=== PATIENT | female | born 1990 | race Caucasian/White ===

== ENCOUNTER 2017-01-17 21:52 | Emergency (ER) | payer MEDICAID ==
[2017-01-17 22:11] VITALS: BP 100/67; PULSE 62; RESP 20; TEMP 97.9; O2SAT 97
== END 2017-01-17 22:46 | disposition left against medical advice (07) ==
LOC: C.ER 21:52
DX: R21 Rash and other nonspecific skin eruption (principal); Z02.9 Encounter for administrative examinations, unspecified

== ENCOUNTER 2017-10-06 23:28 | Emergency (ER) | payer MEDICAID ==
[2017-10-07 00:10] VITALS: BP 105/62; PULSE 72; TEMP 98.6; O2SAT 100
--- NOTE | 2017-10-07 00:41 | C.PDOC ---
History Of Present Illness 27 year old female with a Hx of eczema presents to the ER after waking up with increasing swelling around her lips and an itchy rash to the face. Patient states she no longer has any of her prescribed ointments or creams at home. Denies SOB or tongue swelling. Time Seen by Provider: 10/07/17 00:16 Chief Complaint (Nursing): Allergic Reaction History Per: Patient History/Exam Limitations: no limitations Current Symptoms Are (Timing): Still Present Possible Cause: Unknown Associated Symptoms: Skin Rash, Swelling, Itching Recent travel outside of the [place]: No Past Medical History Reviewed: Historical Data, Nursing Documentation, Vital Signs Vital Signs: Last Vital Signs Temp 98.6 F 10/07/17 00:05 Pulse 72 10/07/17 00:05 Resp 20 10/07/17 00:53 BP 105/62 10/07/17 00:05 Pulse Ox 100 10/07/17 04:40 Family History: States: Unknown Family Hx - Social History Hx Tobacco Use: No Hx Alcohol Use: No Hx Substance Use: No - Immunization History Hx Tetanus Toxoid Vaccination: No Hx Influenza Vaccination: Yes Hx Pneumococcal Vaccination: No Review Of Systems ENT: Positive for: Mouth Swelling ( Around lips). Negative for: Throat Swelling Respiratory: Negative for: Shortness of Breath, Wheezing Skin: Positive for: Rash Physical Exam - Physical Exam Appears: Non-toxic, No Acute Distress Skin: Warm, Dry, Rash (Macular rash face, hyperpigmentation to perioral area. Hyperpigmented scaly rash to arms, shoulders and anterior aspect of forearms that appears chronic.) Head: Atraumatic, Normacephalic, No Swelling Eye(s): bilateral: Normal Inspection Oral Mucosa: Moist Tongue: Normal Appearing, No Swelling Lips: Normal Appearing, No Swelling Throat: Normal, No Erythema, No Other (Swelling) Neck: Normal, Supple Chest: Symmetrical, No Tenderness Cardiovascular: Rhythm Regular Respiratory: Normal Breath Sounds, No Rales, No Rhonchi, No Wheezing Neurological/Psych: Oriented x3, Normal Speech ED Course And Treatment O2 Sat by Pulse Oximetry: 100 (Room air) Pulse Ox Interpretation: Normal Progress Note: Benadryl and prednisone administered. Patient is resting comfortably in the ER in no acute distress, will discharge home with Rx and instruct to follow up with dematologist for further evaluation or return to ER if symtoms worsen. Disposition Counseled Patient/Family Regarding: Diagnosis, Need For Followup, Rx Given - Disposition Referrals: [facility] [Outside] Disposition: HOME/ ROUTINE Disposition Time: 00:41 Condition: STABLE Additional Instructions: Please follow up with PMD or printing bindery assistant Take meds as directed Return to ER if worse Prescriptions: Cetirizine HCl [Zyrtec] 10 mg PO DAILY #20 capsule predniSONE [Prednisone] 20 mg PO DAILY #7 tab Triamcinolone Acetonide [Kenalog 0.025% cream] 15 applic TP BID #60 g Instructions: Dermatitis (ED) Forms: [employer] (Finnish) - Clinical Impression Clinical Impression: Eczema - 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 - Scribe Statement The provider has reviewed the documentation as recorded by the Scribannamaria Schmitt All medical record entries made by the Vikashibannamaria were at my direction and personally dictated by me. I have reviewed the chart and agree that the record accurately reflects my personal performance of the history, physical exam, medical decision making, and the department course for this patient. I have also personally directed, reviewed, and agree with the discharge instructions and disposition.
[2017-10-07 00:54] VITALS: RESP 20
== END 2017-10-07 00:53 | disposition home or self-care (01) ==
LOC: C.ER 23:28
DX: L30.9 Dermatitis, unspecified (principal)

== ENCOUNTER 2017-12-11 10:59 | Emergency (ER) | payer MEDICAID ==
[2017-12-11 11:25] VITALS: BP 91/62; PULSE 68; RESP 24; TEMP 97.6; O2SAT 100
--- NOTE | 2017-12-11 11:35 | C.PDOC ---
History Of Present Illness 27 yo female with PMH of eczema c/o rash to her face for the last 2-3 days. Pt notes she has had the same flares of eczema many times before. Pt notes she has tried topical cream without relief. Reports "prednisone, benadryl and desonide" is the only thing that works. No recent topical or PO use. Also reports she sometimes gets rash to the back of her neck, shoulders, b/l antecubital area and behind the knees. Denies any new medication, food, or change in detergent. No difficulty breathing or swallowing. Denies tongue or lip swelling. Notes she has not been to a wildlife conservation officer since her last ER visit last year but has an appt scheduled of next Sunday. Time Seen by Provider: 12/11/17 11:15 Chief Complaint (Nursing): Allergic Reaction History Per: Patient History/Exam Limitations: no limitations Onset/Duration Of Symptoms: Days Current Symptoms Are (Timing): Still Present Past Medical History Vital Signs: Last Vital Signs Temp 97.6 F 12/11/17 11:20 Pulse 68 12/11/17 11:20 Resp 24 12/11/17 11:20 BP 91/62 L 12/11/17 11:20 Pulse Ox 100 12/11/17 11:35 - Medical History PMH: Denies: Chronic Kidney Disease Family History: States: Unknown Family Hx - Social History Hx Tobacco Use: No Hx Alcohol Use: No Hx Substance Use: No - Immunization History Hx Tetanus Toxoid Vaccination: No Hx Influenza Vaccination: Yes Hx Pneumococcal Vaccination: No Review Of Systems Except As Marked, All Systems Reviewed And Found Negative. Skin: Positive for: Rash Physical Exam - Physical Exam Appears: Well, Non-toxic, No Acute Distress Skin: Warm, Dry, Rash ((+) dry scaly skin on erythematous base diffusely to her face , mildly on her right axilla and right posterior hair line) Head: Atraumatic, Normacephalic Eye(s): bilateral: Normal Inspection, PERRL, EOMI Ear(s): Bilateral: Normal Nose: Normal Oral Mucosa: Moist Throat: Normal, No Erythema, No Exudate, No Drooling Neck: Normal, Normal ROM, Supple Chest: Symmetrical Cardiovascular: Rhythm Regular Respiratory: Normal Breath Sounds, No Accessory Muscle Use, Other (speaking in full sentences) Gastrointestinal/Abdominal: Normal Exam, Soft, No Tenderness Back: Normal Inspection Extremity: Normal ROM Extremity: Bilateral: Atraumatic Neurological/Psych: Oriented x3, Normal Speech Gait: Steady ED Course And Treatment O2 Sat by Pulse Oximetry: 100 Progress Note: Discussed with pt preventative methods, hydration of skin and avoiding long hot showers. Also discussed concern for prolonged steriod use and side effects. Instructed to follow up with wildlife conservation officer as schedule or return to ER if symtpoms persist or worsen. Disposition - Disposition Disposition: HOME/ ROUTINE Disposition Time: 11:30 Condition: STABLE Additional Instructions: Follow up with the wildlife conservation officer on Sunday as scheduled. Return to ER if symptoms persist or worsen. Prescriptions: Desonide 0.25 gm TP BID #1 cream..g. DiphenhydrAMINE [Benadryl] 25 mg PO Q6 #20 cap predniSONE [Prednisone] 40 mg PO DAILY #8 tab Instructions: Eczema (Atopic Dermatitis) (DC) Forms: [employer] (Montserratian) - Clinical Impression Clinical Impression: Atopic dermatitis
== END 2017-12-11 11:46 | disposition home or self-care (01) ==
LOC: C.ER 10:59
DX: L20.9 Atopic dermatitis, unspecified (principal)

== ENCOUNTER 2018-08-05 19:31 | Emergency (ER) | payer MEDICAID ==
[2018-08-05 19:44] VITALS: BP 103/70; PULSE 65; RESP 16; TEMP 98.9; O2SAT 97
== END 2018-08-05 19:40 | disposition left against medical advice (07) ==
LOC: C.ER 19:31
DX: Z02.89 Encounter for other administrative examinations (principal); M79.645 Pain in left finger(s)

== ENCOUNTER 2018-08-05 23:46 | Emergency (ER) | payer MEDICAID ==
[2018-08-06 00:09] VITALS: RESP 16; O2SAT 98
[2018-08-06] MEDS ORDERED: Tmp-Smz 800 mg-160 mg DS Tab PO STA (01:28)
--- NOTE | 2018-08-06 01:28 | C.PDOC ---
History Of Present Illness 28 year old female presents to the ED c/o pain and swelling to her 3rd left finger for the past 4 days. Patient reports that her symptoms have worsened over the past 2 days which promoted the visit today. Patient denies fever, chills, injury, fall, trauma, weakness, numbness. Time Seen by Provider: 08/06/18 01:05 Chief Complaint (Nursing): Finger,Hand,&Wrist History Per: Patient History/Exam Limitations: no limitations Onset/Duration Of Symptoms: Days (4) Current Symptoms Are (Timing): Still Present Quality: "Pain" Recent travel outside of the [place]: No Additional History Per: Patient Past Medical History Reviewed: Historical Data, Nursing Documentation, Vital Signs Vital Signs: Last Vital Signs Temp 98.7 F 08/06/18 00:07 Pulse 61 08/06/18 00:07 Resp 16 08/06/18 00:07 BP 111/70 08/06/18 00:07 Pulse Ox 98 08/06/18 00:07 - Medical History PMH: No Chronic Diseases Denies: Chronic Kidney Disease Surgical History: No Surg Hx Family History: States: Unknown Family Hx - Social History Hx Tobacco Use: No Hx Alcohol Use: No Hx Substance Use: No - Immunization History Hx Tetanus Toxoid Vaccination: No Hx Influenza Vaccination: Yes Hx Pneumococcal Vaccination: No Review Of Systems Constitutional: Negative for: Fever, Chills Cardiovascular: Negative for: Chest Pain Respiratory: Negative for: Cough, Shortness of Breath Gastrointestinal: Negative for: Nausea, Vomiting, Abdominal Pain Musculoskeletal: Positive for: Hand Pain Skin: Negative for: Rash Neurological: Negative for: Weakness, Numbness Physical Exam - Physical Exam Appears: Non-toxic, No Acute Distress Skin: Normal Color, Warm, Dry Head: Atraumatic, Normacephalic Eye(s): bilateral: Normal Inspection Extremity: Normal ROM, Tenderness (left 3rd finger and nailbed ), Capillary Refi ll (<2 seconds), Swelling (+ swelling, fluctuance and erythema to left 3rd finger and nailbed. ) Pulses: Left Radial: Normal, Right Radial: Normal Neurological/Psych: Oriented x3, Normal Speech, Normal Cognition, Normal Motor, Normal Sensation Gait: Steady ED Course And Treatment O2 Sat by Pulse Oximetry: 98 (On RA) Pulse Ox Interpretation: Normal Progress Note: Physical exam is indicative of paronychia. Finger was drained using an 11"blade with success. - Incision & Drainage Of Abscess Prep Used: Betadine Procedure: Incised W/Scalpel Blade#: (11), Drained Pus Medical Decision Making Medical Decision Making: Plan: * Bactrim 1 tab PO * Motrin 600 mg PO Disposition - Disposition Referrals: Joanne Pelletier MD [Staff Provider] - Disposition: HOME/ ROUTINE Disposition Time: 01:27 Condition: STABLE Additional Instructions: Apply warm compresses and soak the finger in warm water twice a day. Continue to squeeze out the pus. Take antibiotics until completed. Return if worsened. 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 - Scribe Statement The provider has reviewed the documentation as recorded by the Scribe Angel López All medical record entries made by the Scribe were at my direction and personally dictated by me. I have reviewed the chart and agree that the record accurately reflects my personal performance of the history, physical exam, medical decision making, and the department course for this patient. I have also personally directed, reviewed, and agree with the discharge instructions and disposition.
[2018-08-06] MEDS ORDERED: Tmp-Smz 800 mg-160 mg DS Tab ONE (01:39)
[2018-08-06 01:40] VITALS: BP 105/64; PULSE 68; TEMP 97.9
== END 2018-08-06 01:43 | disposition home or self-care (01) ==
LOC: C.ER 23:46
DX: L03.012 Cellulitis of left finger (principal)

== ENCOUNTER 2018-08-13 13:12 | Emergency (ER) | payer MEDICAID ==
[2018-08-13 13:29] VITALS: BP 99/95; PULSE 87; RESP 18; TEMP 98.2; O2SAT 97
--- NOTE | 2018-08-13 13:46 | C.PDOC ---
History Of Present Illness 28-year-old female presents to the ED complaining of dental pain since this morning. Pain is localized near a right lower wisdom tooth. Patient states she was advised to have it removed but has been unable to. Otherwise she denies any fever, chills, or discharge from the area. Time Seen by Provider: 08/13/18 13:41 Chief Complaint (Nursing): Dental Pain History Per: Patient History/Exam Limitations: no limitations Onset/Duration Of Symptoms: Hrs Current Symptoms Are (Timing): Still Present Past Medical History Reviewed: Historical Data, Nursing Documentation, Vital Signs Vital Signs: Last Vital Signs Temp 98.2 F 08/13/18 13:25 Pulse 87 08/13/18 13:25 Resp 18 08/13/18 13:25 BP 99/95 H 08/13/18 13:25 Pulse Ox 97 08/13/18 13:25 - Medical History PMH: Denies: Chronic Kidney Disease Surgical History: No Surg Hx Family History: States: Unknown Family Hx - Social History Hx Tobacco Use: No Hx Alcohol Use: No Hx Substance Use: No - Immunization History Hx Tetanus Toxoid Vaccination: No Hx Influenza Vaccination: Yes Hx Pneumococcal Vaccination: No Review Of Systems Constitutional: Negative for: Fever, Chills ENT: Positive for: Other (Right-sided dental pain). Negative for: Mouth Swelling (or facial swelling) Respiratory: Negative for: Cough, Shortness of Breath Neurological: Negative for: Headache, Dizziness Physical Exam - Physical Exam Appears: Well, Non-toxic, No Acute Distress Skin: Warm, Dry, No Rash Head: Atraumatic, Normacephalic, Other (No facial swelling) Eye(s): bilateral: Normal Inspection Oral Mucosa: Moist Teeth: Tender To Palpation, Other (impacted right lower wisdom tooth) Gingiva: Swelling (Gingival swelling near site of impacted tooth), No Bleeding, No Abscess Throat: Normal, No Erythema Neck: Normal ROM Chest: Symmetrical Neurological/Psych: Oriented x3, Normal Speech ED Course And Treatment O2 Sat by Pulse Oximetry: 97 (RA) Pulse Ox Interpretation: Normal Medical Decision Making Medical Decision Making: Impression: Right-sided dental pain Dispo: Patient will be discharged home with motrin, penicillin, and tylenol w/ codeine. Counseled regarding diagnosis and the need to follow up with dentist/oral surgeon. Disposition Counseled Patient/Family Regarding: Diagnosis, Need For Followup, Rx Given - Disposition Referrals: Sherri John MD [Medical Doctor] - [facility] [Outside] Disposition: HOME/ ROUTINE Disposition Time: 13:44 Condition: GOOD Additional Instructions: Please follow up with Dentist Take pain medicine as needed Prescriptions: Acetaminophen with Codeine [Tylenol with Codeine No. 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 - Scribe Statement The provider has reviewed the documentation as recorded by the Vikashibannamaria Rm All medical record entries made by the Vikashibannamaria were at my direction and personally dictated by me. I have reviewed the chart and agree that the record accurately reflects my personal performance of the history, physical exam, medical decision making, and the department course for this patient. I have also personally directed, reviewed, and agree with the discharge instructions and disposition.
== END 2018-08-13 14:21 | disposition home or self-care (01) ==
LOC: C.ER 13:12
DX: K05.10 Chronic gingivitis, plaque induced (principal); K02.9 Dental caries, unspecified

== ENCOUNTER 2018-08-14 04:26 | Emergency (ER) | payer MEDICAID ==
[2018-08-14 04:36] VITALS: BP 108/75; PULSE 74; RESP 20; TEMP 98.1; O2SAT 98
[2018-08-14] MEDS ORDERED: Sodium Chloride 0.9% 1,000 ML IV ONE (04:48)
--- NOTE | 2018-08-14 05:09 | C.PDOC ---
History Of Present Illness 28 year old female presents to the ER with a complaint of dental pain. Patient was seen here earlier for the same complaint but she was unable to fill Rx. Patient states she woke up tonight with pain to the same area, she reports pain has subsided while in the ER but would still like medication. Denies fever or headache. Time Seen by Provider: 08/14/18 04:38 Chief Complaint (Nursing): Dental Pain History Per: Patient History/Exam Limitations: no limitations Onset/Duration Of Symptoms: Hrs Current Symptoms Are (Timing): Still Present Recent travel outside of the [place]: No Past Medical History Reviewed: Historical Data, Nursing Documentation, Vital Signs Vital Signs: Last Vital Signs Temp 98.1 F 08/14/18 04:33 Pulse 74 08/14/18 04:33 Resp 20 08/14/18 04:33 BP 108/75 08/14/18 04:33 Pulse Ox 98 08/14/18 04:33 - Medical History PMH: Denies: Chronic Kidney Disease Family History: States: Unknown Family Hx - Social History Hx Tobacco Use: No Hx Alcohol Use: No Hx Substance Use: No - Immunization History Hx Tetanus Toxoid Vaccination: Yes Hx Influenza Vaccination: Yes Hx Pneumococcal Vaccination: No Review Of Systems Constitutional: Negative for: Fever ENT: Positive for: Mouth Pain Neurological: Negative for: Headache Physical Exam - Physical Exam Appears: Non-toxic Skin: Normal Color, Warm, Dry Head: Atraumatic, Normacephalic, No Swelling (Facial) Eye(s): bilateral: Normal Inspection Nose: Normal Oral Mucosa: Moist Tongue: Normal Appearing Lips: Normal Appearing Teeth: Other (Impacted right lower posterior molar) Gingiva: No Erythema, Swelling (Minimal swelling around right lower posterior molar) Throat: Normal, No Erythema, No Exudate Neck: Normal, No Midline Cervical Tenderness, No Paracervical Tenderness, Supple Neurological/Psych: Oriented x3, Normal Speech ED Course And Treatment O2 Sat by Pulse Oximetry: 98 (Room air) Pulse Ox Interpretation: Normal Progress Note: Motrin administered. Patient is resting comfortably in no acute distress, vitals are stable, will discharge home with instructions to follow up with dentist today for further management. Disposition Counseled Patient/Family Regarding: Diagnosis, Need For Followup, Rx Given - Disposition Referrals: Dental office, Dentist [Other] Disposition: HOME/ ROUTINE Disposition Time: 05:06 Condition: STABLE Additional Instructions: Continue prescribed medications- Have RX filled Follow up with a dentist Return to ER if worse Instructions: Dental Pain (DC) Forms: [employer] (C[place]odian) - Clinical Impression Clinical Impression: Impacted molar, Pain, dental - PA / ELEMENT BURNER / Resident Statement MD/DO has reviewed & agrees with the documentation as recorded. - Scribe Statement The provider has reviewed the documentation as recorded by the Scribe Christ Schmitt All medical record entries made by the Vikashibannamaria were at my direction and personally dictated by me. I have reviewed the chart and agree that the record accurately reflects my personal performance of the history, physical exam, medical decision making, and the department course for this patient. I have also personally directed, reviewed, and agree with the discharge instructions and disposition.
== END 2018-08-14 05:24 | disposition home or self-care (01) ==
LOC: C.ER 04:26
DX: K01.1 Impacted teeth (principal); K08.89 Other specified disorders of teeth and supporting structures

== ENCOUNTER 2018-08-20 12:01 | Emergency (ER) | payer MEDICAID ==
--- NOTE | 2018-08-20 13:06 | C.PDOC ---
History Of Present Illness 28 y/o female with longstanding hx of eczema, presents to the ED for evaluation of eczematous rash around the mouth developed this morning. Patient states her eczema break outs are usually exacerbated by allergies, and she attributes current symptoms to exposure to dust this morning. She sees a field logistics coordinator, and has been prescribed a steroid cream, which she applied with minimal relief. She reports applying Vasoline and Aquaphor on the area to keep it moisturized. Patient states usually oral steroids help her. Otherwise she denies any difficulty breathing, wheezing, or lip/tongue swelling. Patient states she did not take Benadryl as she needs to go to work. Time Seen by Provider: 08/20/18 12:58 Chief Complaint (Nursing): Abnormal Skin Integrity History Per: Patient History/Exam Limitations: no limitations Onset/Duration Of Symptoms: Hrs Current Symptoms Are (Timing): Still Present Past Medical History Reviewed: Historical Data, Nursing Documentation, Vital Signs - Medical History PMH: Denies: Chronic Kidney Disease Other PMH: Eczema, Allergies Family History: States: Unknown Family Hx - Social History Hx Tobacco Use: No Hx Alcohol Use: No Hx Substance Use: No - Immunization History Hx Tetanus Toxoid Vaccination: Yes Hx Influenza Vaccination: Yes Hx Pneumococcal Vaccination: No Review Of Systems Constitutional: Negative for: Fever, Chills ENT: Negative for: Mouth Swelling, Throat Swelling Cardiovascular: Negative for: Chest Pain Respiratory: Negative for: Shortness of Breath, Wheezing Gastrointestinal: Negative for: Nausea, Vomiting Skin: Positive for: Rash (around mouth) Neurological: Negative for: Weakness, Headache Physical Exam - Physical Exam Appears: Non-toxic, No Acute Distress Skin: Warm, Dry, Rash (Dry scaly rash consistent with eczema to perioral region and along the nape of her neck) Head: Atraumatic, Normacephalic Eye(s): bilateral: Normal Inspection, PERRL, EOMI Oral Mucosa: Moist Throat: Normal (airway patent), No Erythema Neck: Normal ROM Chest: Symmetrical Cardiovascular: Rhythm Regular, No Murmur Respiratory: Normal Breath Sounds, No Accessory Muscle Use, No Wheezing Pulses: Left Radial: Normal, Right Radial: Normal Neurological/Psych: Oriented x3, Normal Speech Medical Decision Making Medical Decision Making: Plan: Patient will be discharged home with prescription for oral prednisone. Advised to follow up with field logistics coordinator for further evaluation. Disposition Counseled Patient/Family Regarding: Diagnosis, Need For Followup, Rx Given - Disposition Disposition: HOME/ ROUTINE Disposition Time: 13:06 Condition: STABLE Additional Instructions: CONSTANTINE BERNARD, thank you for letting us take care of you today. Your provider was Tari Jenkins MD and you were treated for ALLERGIC REACTION. The emergency medical care you received today was directed at your acute symptoms. If you were prescribed any medication, please fill it and take as directed. It may take several days for your symptoms to resolve. Return to the Emergency Department if your symptoms worsen, do not improve, or if you have any other problems. Please contact your doctor or call one of the physicians/clinics you have been referred to that are listed on the Patient Visit Information form that is included in your discharge packet. Bring any paperwork you were given at discharge with you along with any medications you are taking to your follow up visit. Our treatment cannot replace ongoing medical care by a primary care provider outside of the emergency department. Thank you for allowing the [facility] team to be part of your care today. If you had an X-Ray or CT scan: A Radiologist will review the ED reading if any change in treatment is needed we will contact you. If you had a blood, urine, or wound culture: It will take several days for the results, if any change in treatment is needed we will contact you. If you had an STI test: It will take 48 hours for the results. Please call after 1 week if you have not heard back. Prescriptions: Cetirizine HCl [Zyrtec] 10 mg PO DAILY #20 capsule RX: predniSONE [predniSONE Tab] 20 mg PO DAILY #7 tab Instructions: Eczema (Atopic Dermatitis) Forms: [employer] (Scottish), Work Excuse - Clinical Impression Clinical Impression: Eczema - Scribe Statement The provider has reviewed the documentation as recorded by the Marin Rm Provider Attestation: All medical record entries made by the Marin were at my direction and personally dictated by me. I have reviewed the chart and agree that the record accurately reflects my personal performance of the history, physical exam, medical decision making, and the department course for this patient. I have also personally directed, reviewed, and agree with the discharge instructions and disposition.
== END 2018-08-20 13:58 | disposition home or self-care (01) ==
LOC: C.ER 12:01
DX: L30.9 Dermatitis, unspecified (principal)

== ENCOUNTER 2018-08-28 23:49 | Emergency (ER) | payer MEDICAID ==
[2018-08-29 00:29] VITALS: TEMP 98.3
[2018-08-29] MEDS ORDERED: DiphenhydrAMINE 12.5 mg/5 ml LIQ UD (5 ml) PO STA (00:45)
--- NOTE | 2018-08-29 00:54 | C.PDOC ---
History Of Present Illness 28 year old female presents to the ER with a complaint of itchiness and swelling to both eyelids and lips for the past few days. Denies SOB or other skin irritations. Chief Complaint (Nursing): Allergic Reaction History Per: Patient History/Exam Limitations: no limitations Onset/Duration Of Symptoms: Days Current Symptoms Are (Timing): Still Present Possible Cause: Unknown Associated Symptoms: Swelling, Itching Recent travel outside of the [place]: No Past Medical History Reviewed: Historical Data, Nursing Documentation, Vital Signs Vital Signs: Last Vital Signs Temp 98.3 F 08/29/18 00:23 Pulse 78 08/29/18 00:23 Resp 16 08/29/18 00:23 BP 114/70 08/29/18 00:23 Pulse Ox 99 08/29/18 00:23 - Medical History PMH: Denies: Chronic Kidney Disease Family History: States: Unknown Family Hx - Social History Hx Tobacco Use: No Hx Alcohol Use: No Hx Substance Use: No - Immunization History Hx Tetanus Toxoid Vaccination: Yes Hx Influenza Vaccination: Yes Hx Pneumococcal Vaccination: No Review Of Systems Constitutional: Negative for: Fever, Chills ENT: Negative for: Throat Swelling Cardiovascular: Negative for: Chest Pain, Palpitations Respiratory: Negative for: Cough, Shortness of Breath Gastrointestinal: Negative for: Nausea, Vomiting Skin: Positive for: Other (Swelling and itchiness to lips and eyelids) Neurological: Negative for: Weakness, Numbness Physical Exam - Physical Exam Appears: Non-toxic Skin: Warm, Dry Head: Atraumatic, Normacephalic Eye(s): bilateral: PERRL, EOMI, Other (Erythema and soft tissue swelling to eyelids) Ear(s): Bilateral: Normal Nose: Normal Oral Mucosa: Moist Lips: Other (Erythema and soft tissue swelling to eyelids and perioral area including lips) Throat: Normal, No Erythema, No Exudate, No Other (Swelling) Neck: Normal, Supple, No Other (Swelling) Chest: Symmetrical, No Tenderness Cardiovascular: Rhythm Regular Respiratory: Normal Breath Sounds, No Accessory Muscle Use, No Stridor, No Wheezing Gastrointestinal/Abdominal: Soft, No Tenderness Neurological/Psych: Oriented x3, Normal Speech ED Course And Treatment O2 Sat by Pulse Oximetry: 99 (Room air) Pulse Ox Interpretation: Normal Progress Note: Benadryl administered. Disposition Counseled Patient/Family Regarding: Diagnosis - Disposition Referrals: [facility] [Outside] Disposition: HOME/ ROUTINE Disposition Time: 00:52 Condition: STABLE Additional Instructions: to use LOWELA soap. Prescriptions: DiphenhydrAMINE [Benadryl] 25 mg PO Q6 #20 cap Triamcinolone Acetonide [Kenalog 0.025% cream] 15 applic TP BID #1 tube Instructions: Contact Dermatitis (DC) Forms: [employer] (Armenian) - POA Present On Arrival: None - Clinical Impression Clinical Impression: Contact dermatitis and eczema - Scribe Statement The provider has reviewed the documentation as recorded by the Scribe Christ Schmitt All medical record entries made by the Scribe were at my direction and personally dictated by me. I have reviewed the chart and agree that the record accurately reflects my personal performance of the history, physical exam, medical decision making, and the department course for this patient. I have also personally directed, reviewed, and agree with the discharge instructions and disposition.
[2018-08-29 01:42] VITALS: BP 114/82; PULSE 74; RESP 22; O2SAT 98
== END 2018-08-29 01:37 | disposition home or self-care (01) ==
LOC: C.ER 23:49
DX: L25.9 Unspecified contact dermatitis, unspecified cause (principal)

== ENCOUNTER 2019-02-05 11:50 | Emergency (ER) | payer MEDICAID ==
[2019-02-05 11:58] VITALS: BP 104/63; PULSE 66; RESP 18; TEMP 98.5; O2SAT 100
--- NOTE | 2019-02-05 12:22 | C.PDOC ---
Time Seen by Provider: 02/05/19 12:14 Chief Complaint (Nursing): Allergic Reaction Past Medical History Vital Signs: Last Vital Signs Temp 98.5 F 02/05/19 11:54 Pulse 66 02/05/19 11:54 Resp 18 02/05/19 11:54 BP 104/63 02/05/19 11:54 Pulse Ox 100 02/05/19 11:54 Primary Care Provider: Sherri John - Medical History PMH: Denies: Chronic Kidney Disease Family History: States: Unknown Family Hx - Social History Hx Tobacco Use: No Hx Alcohol Use: No Hx Substance Use: No - Immunization History Hx Tetanus Toxoid Vaccination: Yes Hx Influenza Vaccination: Yes Hx Pneumococcal Vaccination: No ED Course And Treatment O2 Sat by Pulse Oximetry: 100 Disposition - Disposition
--- NOTE | 2019-02-05 12:35 | C.PDOC ---
History Of Present Illness 29 year old female with a history of multiple allergies (food, dust, chemicals) presents to the emergency department with complaints of "breakout" around her chin and diffuse to her face. Patient reports using [employer] toothpaste after which she noted the breakout. She states that it became worse last week, and is now on her cheeks and eyes. Patient states that she has been using Zyrtec, last used prior to arrival (which she is running low on), with no relief of symptoms. Patient reports being seen by an plant pathology teacher in the past for food allergies. Patient denies rash in any other location, difficulty breathing/swallowing, chest pain, nausea, vomiting, itchy throat/tongue. Time Seen by Provider: 02/05/19 12:14 Chief Complaint (Nursing): Allergic Reaction History Per: Patient History/Exam Limitations: no limitations Onset/Duration Of Symptoms: Worse Since, Other (1 week) Current Symptoms Are (Timing): Worse Possible Cause: Other (toothpaste) Associated Symptoms: Skin Rash. denies: Swelling, Dyspnea, Trouble Swallowing, Dizziness, Itching, Chest Pain, Other Home/EMS Treatment: Other (Zyrtec). denies: Benadryl Past Medical History Reviewed: Historical Data, Nursing Documentation, Vital Signs Vital Signs: Last Vital Signs Temp 98.5 F 02/05/19 11:54 Pulse 66 02/05/19 11:54 Resp 18 02/05/19 11:54 BP 104/63 02/05/19 11:54 Pulse Ox 100 02/05/19 11:54 Primary Care Provider: Sherri John - Medical History PMH: No Chronic Diseases Denies: Chronic Kidney Disease Surgical History: No Surg Hx Family History: States: No Known Family Hx - Social History Hx Tobacco Use: No Hx Alcohol Use: No Hx Substance Use: No - Immunization History Hx Tetanus Toxoid Vaccination: Yes Hx Influenza Vaccination: Yes Hx Pneumococcal Vaccination: No Review Of Systems Except As Marked, All Systems Reviewed And Found Negative. Constitutional: Negative for: Fever, Chills ENT: Negative for: Mouth Pain, Mouth Swelling, Throat Pain, Throat Swelling Cardiovascular: Negative for: Chest Pain, Palpitations Respiratory: Negative for: Cough, Shortness of Breath Gastrointestinal: Negative for: Nausea, Vomiting, Abdominal Pain, Diarrhea Skin: Positive for: Rash Neurological: Negative for: Weakness, Numbness Physical Exam - Physical Exam Appears: Non-toxic, No Acute Distress (comfortable) Skin: No Normal Color, Warm, Dry, Rash (Urticarial rash to the b/l cheeks, around eyes.) Head: Atraumatic, Normacephalic Eye(s): bilateral: Normal Inspection, PERRL, EOMI, Other (Conjunctiva NOT injected.) Nose: Normal Oral Mucosa: Moist Tongue: Normal Appearing, No Swelling Lips: Normal Appearing, No Swelling Gingiva: Normal Appearing Throat: Normal, No Erythema, No Exudate, No Mass Neck: Normal, Supple Chest: Symmetrical, No Tenderness Cardiovascular: Rhythm Regular, No Murmur Respiratory: Normal Breath Sounds, No Rales, No Rhonchi, No Wheezing Gastrointestinal/Abdominal: Soft, No Tenderness, No Guarding, No Rebound Extremity: Normal ROM Neurological/Psych: Oriented x3, Normal Speech, Normal Cognition ED Course And Treatment O2 Sat by Pulse Oximetry: 100 (RA) Pulse Ox Interpretation: Normal Medical Decision Making Medical Decision Making: Plan: Prednisone 60mg PO Patient refuses Benadryl, due to working during the day and does not want to be drowsy. Patient was told to continue taking Zyrtec with prescribed steroids. Disposition Counseled Patient/Family Regarding: Diagnosis, Need For Followup, Rx Given - Disposition Referrals: Sherri John MD [Medical Doctor] - Disposition: HOME/ ROUTINE Disposition Time: 12:32 Condition: GOOD Prescriptions: Cetirizine HCl [Zyrtec] 10 mg PO DAILY #30 capsule predniSONE [Prednisone] 40 mg PO DAILY #10 tab Instructions: Jay (DC) Forms: General Discharge Instructions, [facility] (British), Work Excuse - Clinical Impression Clinical Impression: Allergic urticaria - Scribe Statement The provider has reviewed the documentation as recorded by the Scribe (Marcellus [email or web address]) Provider Attestation: All medical record entries made by the Scribe were at my direction and personally dictated by me. I have reviewed the chart and agree that the record accurately reflects my personal performance of the history, physical exam, medical decision making, and the department course for this patient. I have also personally directed, reviewed, and agree with the discharge instructions and disposition.
== END 2019-02-05 12:53 | disposition home or self-care (01) ==
LOC: C.ER 11:50
DX: L50.0 Allergic urticaria (principal)